=== PATIENT | female | born 2000 | race Caucasian/White ===

== ENCOUNTER 2019-09-18 14:54 | Outpatient (CLI) | payer OTHER, SELFPAY ==
--- NOTE | ~2019-09-18 | US_ITS ---
US breast RT limited DATE: 09/18/2019 15:37 INDICATION: 19-year-old complaining of 10:00 right breast lump TECHNIQUE: High-resolution ultrasound imaging was performed at the area of clinical complaint of righ t breast lump at 10:00. The technologist states that the patient does not notice mass today. COMPARISON: None FINDINGS: No suspicious mass, shadowing, cyst or other significant sonographic finding is identified. IMPRESSION: BI-RADS Category 1: Negative Reviewed, dictated and finalized at [facility]. Reviewed, dictated and finalized at [facility].
== END 2019-09-18 14:55 | disposition home or self-care (01) ==
PROVIDERS: PCP Family Medicine; Visit Provider Nurse Practitioner
DX: N63.10 Unspecified lump in the right breast, unspecified quadrant (principal)
CPT/HCPCS: 76642